=== PATIENT | female | born 1955 | race Caucasian/White ===

== ENCOUNTER 2018-11-29 10:33 | Inpatient (IN) | payer BC ==
[~2018-11-29] VITALS: Ht 167.6 cm; Wt 105.0 kg
[2018-11-29] MEDS ORDERED: FUROSEMIDE40 MG PO (11:00)
[2018-11-29] MEDS ORDERED: LEVOTHYROXINE100 MCG PO (11:01)
[2018-11-29] MEDS ORDERED: POTASSIUM CHLO20 ME1 PO (11:01)
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
--- NOTE | 2018-11-29 14:00 | NUR ---
63 YR OLD FEMALE PATIENT ADMITTED TO CCU FROM ED VIA STRETCHER WITH DX OF RESP FAILURE. PATIENT HAS FLAT AFFECT ON ADMIT. BIPAP AT 35% FIO2, I-15,E-7. IS PALE. DIFFICULT TO UNDESTAND WITH BIPAP ON. PATIENT HAD STESS ECHO AT [facility] YESTERDAY. ADMISSION PROCESS STARTED.
--- NOTE | 2018-11-29 14:15 | NUR ---
MEDICATIONS GIVEN BY MOUTH. PATIENT ASKING THAT BIPAP REMOVED. TALKED WITH PATIENT ABOUT THE NEED BIPAP. INDICATED UNDERSTANDING.
--- NOTE | 2018-11-29 16:00 | NUR ---
ASSESSMENT DONE. POSEY CATH PATIENT.
--- NOTE | 2018-11-29 16:00 | NUR ---
ASSESSSMENT DONE. IS W/O C/O. REMAINS ON BIPAP FIO2 35, 15/7.
--- NOTE | 2018-11-29 18:55 | NUR ---
DR. ROY AWARE OF U/O AND UPDATED ON PATIENT STATUS. REPORT TO NEXT SHIFT.
--- NOTE | 2018-11-29 19:32 | NUR ---
OFF BEDPAN, NO STOOL. TYLENOL 500 MG PO GIVEN.
--- NOTE | 2018-11-29 19:50 | NUR ---
SHIFT REPORT WAS RECEIVED FROM XAVI CHEN. PT CURRENTLY ON BIPAP. IV SL. RASH NOTED UNDER BREASTS, NIO FOR NYSTATIN POWDER INITIATED. POSEY IN PLACE, DRAINING FREELY. CALL LIGHT WITHIN REACH.
--- NOTE | 2018-11-29 20:16 | EKG ---
[facility] [address] [place], [place] [address] Signed Normal sinus rhythm Low voltage QRS Possible Anterolateral infarct , age undetermined Abnormal ECG No previous ECGs available Confirmed by VINCENZO ROY MD ([id number]) on 11/29/2018 8:16:51 PM Electronically Signed By: VINCENZO ROY MD 11/29/182015 PATIENT NAME: LEON BARCLAY MOON Electrocardiogram DATE OF : 53 PHYSICIAN: VINCENZO ROY MD REPORT #: [id number] REPORT IS CONFIDENTIAL AND NOT TO BE RELEASED WITHOUT AUTHORIZATION
--- NOTE | 2018-11-29 21:13 | NUR ---
PT DROWSY, BUT IS ORIENTED. DENIES PAIN. LUNGS DIM AND COARSE, BIPAP IN PLACE, 15/ FIO2:32%, RR:22. HR REGULAR. BOWEL TONES SLIGHTY HYPOACTIVE, DENIES NAUSEA. ANASARCA (3+ PITTING) NOTED FROM UPPER ABDOMEN DOWN TO FEET, DEPENDENT EDEMA ALSO PRESENT IN BILATERAL ARMS, RIGHT ARM SLIGHTLY MORE TIGHT FEELING THAN LEFT. POSEY IN PLACE, DRAINING FREELY, POSEY CARE PROVIDED. IV SL, PATENT, 1MG IV BUMEX ADMINISTERED, WILL START DRIP ONCE AVAILABLE FROM PHARMACY. PT'S SKIN ON ABDOMEN AND LEGS IS PINK, RASH NOTED UNDER BREASTS, NYSTATIN POWDER APPLIED. DROPLET PRECAUTIONS IN PLACE FOR +FLU. BIPAP REMOVED SO THAT PT COULD TAKE PO MEDS, PT DESATURATED TO 87% QUICKLY AND RETURNED BACK TO 96% ONCE BIPAP WAS REPLACED. CALL LIGHT WITHIN REACH. WILL CONTINUE TO MONITOR.
--- NOTE | 2018-11-29 21:51 | NUR ---
PHARMACIST DELIVERED BUMEX DRIP AT THIS TIME, INFUSION STARTED. PT APPEARS TO BE SLEEPING, NO APPARENT DISTRESS. BIPAP IN PLACE, RR:23, SPO2:95%, HR:86.
--- NOTE | 2018-11-30 00:21 | NUR ---
ASSESSMENT COMPLETED. PT GIVEN 500MG PO TYLENOL FOR AXILLARY TEMP OF 101.1, PT IRRITABLE THAT I WOKE HER UP. CONTINUES TO DENY PAIN AND NAUSEA. LUNGS REMAIN DIM/COARSE, BIPAP IN PLACE. HR REGULAR. BOWEL TONES ACTIVE. SKIN REMAINS REDDENED ON ABDOMEN AND LEGS. ANASARCA REMAINS PRESENT FROM ABDOMEN TO FEET. POSEY PATENT, LARGE UO WITH BUMEX DRIP IN PLACE. CALL LIGHT WITHIN REACH.
--- NOTE | 2018-11-30 02:12 | NUR ---
AWAKE, C/O BEING TOO WARM, BLANKETS OFF AND TEMP IN ROOM TURNED DOWN. OFF BIPAP AND ON OXYMASK FOR NOW. GIVEN SMALL AMT WATER PER PT REQUEST.
--- NOTE | 2018-11-30 02:51 | NUR ---
PT COMPLAINS THAT SHE IS NOT COMFORTABLE IN THE BED, STATES "I NEED TO GO WALK AROUND." EXPLAINED TO PT THAT SHE NEEDS TO REST AND THAT GOING FOR A WALK ISN'T AN OPTION AT THIS TIME. DID OFFER THAT WE COULD GET HER UP TO THE CHAIR FOR AWHILE. PT UP TO CHAIR WITH 2-PA PIVOT TRANSFER. PT ON 8L OXYMASK. RR:30, SPO2:98%, HR:85. PT WEARING NON-SKID SOCKS, CALL LIGHT IN LAP. PT ALSO COMPLAINING OF HER ARMS TINGLING WHICH IS CHRONIC FOR HER. PT REPEATS "I JUST WANT TO GO HOME."
--- NOTE | 2018-11-30 03:30 | NUR ---
PT REPORTS THAT SHE NEEDS TO HAVE BM. ATTEMPTED TO GET HER UP WITH 3-PA AND FWW, HOWEVER PT STATES "I'M STUCK" AND IS UNABLE TO STAND. UNDER-ARM SLING AND RODRIGUEZ USED TO ASSIST PT ALONG WITH 3-PA TO TRANSFER TO [facility]. PT HAD LARGE SOFT BM, SHELLEY-CARE PROVIDED. PT THEN TRANSFERED TO BED WITH SLING ASSIST. ASSESSMENT THEN COMPLETED, NO CHANGES FROM PREVIOUS ASSESSMENTS. TEMP: 99.1 ORALLY. PT STATES SHE WANTS TO TRY AND SLEEP SOME MORE. ATTEMPTED TO PLACE HER BACK ON BIPAP, BUT PT REFUSES AT THIS TIME. 8L VIA OXYMASK REMAINS IN PLACE, SLIGHT EXPIRATORY WHEEZE NOTED IN LEFT UPPER LOBE, OTHERWISE LUNG SOUNDS REMAIN COARSE AND DIM. BED SCALE ZEROED WHILE PT WAS IN CHAIR, WEIGHT THIS MORNIN.5 POUNDS. CALL LIGHT WITHIN REACH.
--- NOTE | 2018-11-30 05:59 | NUR ---
PT UPSET ABOUT HAVING TO HAVE LABS DRAWN THIS MORNING. EXPLAINED TO HER THE RATIONALE OF NEEDING TO MONITOR HER LAB VALUES AND PT RELUCTANTLY AGREES TO HAVE LABS DRAWN. KALPESH CONTINUES TO PUT OUT LARGE QUANTITIES OF URINE. IV PATENT, INFUSING WNL. CALL LIGHT WITHIN REACH.
--- NOTE | 2018-11-30 08:00 | NUR ---
PT ASLEEP IN BED AT THIS TIME WITH NO S/S OF DISCOMFORT OR PAIN. VSS AND SR ON CONTINUOUS TELE- WILL GIVE PT A LITTLE MORE TIME OF REST BEFORE WAKING FOR ASSESSMENT. CALL LIGHT WITHIN REACH. FALL PRECAUTIONS IN PLACE. WILL CONTINUE TO MONITOR.
--- NOTE | 2018-11-30 09:35 | NUR ---
ASSESSMENT COMPLETED AT THIS TIME. PT VERY FLAT, WITHDRAWN AND DEPRESSED. PT STATES MULTIPLE TIMES HOW BADLY SHE WANTS TO GO HOME, AND THAT SHE'LL "SNEAK OUT OF HERE" WHEN WE AREN'T LOOKING. PT ALSO STATES SHE "DOESN'T SEE THE POINT OF LIVING WHEN SICK ALL THE TIME," WELL HOW SHE THINKS NO ONE BUT HER CARES ABOUT HER SO SHE "MIGHT WELL GO HOME AND ." EMOTIONAL SUPPORT AND THERAPEAUTIC COMMUNICATION GIVEN. PT IS DROWSY WELL, BUT ORIENTED X4. ON 5 L/MIN O2 VIA OXYMASK. LUNGS ARE COURSE THROUGHOUT; MOIST NONPRODUCTIVE COUGH PRESENT. EDEMA/ANASARCA PRESENT AT ABDOMEN DOWN TO FEET. PT VERY UNMOTIVATED, INCLUDING JUST HOLDING THE PHONE WHEN HER BROTHER CALLED. PT DEFINITELY A MAX ASSIST. SHE REFUSES A BATH AT THIS TIME BUT I WILL ATTEMPT THIS AFTERNOON. POSEY CATH IN PLACE DRAINING LARGE AMOUNT OF URINE. BUMEX GTT IS RUNNING AT 0.5 MG/HR WITHOUT COMPLICATION. MEDS GIVEN. EDUCATION GIVEN ALTHOUGH PT UNINTERESTED. SHE DENIES ANY NEEDS TO BE MET AT THIS TIME. CALL LIGHT WITHIN REACH. FALL PRECAUTIONS IN PLACE. WILL CONTINUE TO MONITOR.
--- NOTE | 2018-11-30 10:45 | NUR ---
PER VERBAL ORDER BY DY. ROY, DECREASE BUMEX GTT AT THIS TIME TO 0.25 MG/ HR (5 ML/HR)- CHANGED RATE AT THIS TIME. WILL MONITOR HOURLY OUTPUT IN POSEY AND UPDATE DR. ROY WITHIN THE NEXT FEW HOURS. DR. ROY WAS ABLE TO HEAR HIMSELF PT'S DEPRESSIVE THOUGHTS. WILL WORK ON OBTAINING RECORDS FROM DR. WATERS. PT'S DIET IS ADVANCED AND LUNCH WILL BE ORDERED SHORTLY. PT ALSO GREATLY EDUCATED ON PO WATER INTAKE SHE IS FREQUENTLY REQUESTING WATER. SHE DOESN'T GRASP THE CONCEPT OF FLUID RESTRICTION- WILL CONTINUE TO EDUCATE AND REINFORCED. CALL LIGHT WITHIN REACH. WILL CONTINUE TO MONITOR.
--- NOTE | 2018-11-30 12:00 | NUR ---
PER [facility], ECHO REPORT INCOMPLETE AT THIS TIME BUT AWARE TO FAX TO US WHEN AVAILABLE. DR. WATERS OFFICE ALSO NOTIFIED AND WILL BE FAXING RECORDS TO US.
--- NOTE | 2018-11-30 12:45 | NUR ---
PASTORAL CARE NOTIFIED AT THIS TIME BASED OFF THIS RN'S ASSESSMENT THAT PT MIGHT BENEFIT FROM SEEING EAP COUNSELOR DUE TO DESPRESSION.
--- NOTE | 2018-11-30 14:00 | NUR ---
APRIL KURTZ CONTACTED ME AND EXPRESSED CONCERN ABOUT SYMPTOMS OF DEPRESSION PT WAS EXHIBITING. I CHECHED ON PT-SHE WAS SITTING UP IN BED. PT IS OBVIOUSLY UNHAPPY WITH BEING HERE. HER BROUGHT HER IN AND SHE FEELS THAT STAFF ARE CONSTANTLY BOTHERING HER. "DO THIS, TAKE THAT, DON'T DRINK ANY MORE" ARE JUST A FEW OF THE THINGS THAT PT IS ESPRESSING THAT SHE IS UNHAPPY ABOUT. SHE DID EXPRESS SEVERAL TIMES THAT SHE JUST WANT TO GO HOME AND . PT STATED THAT SHE IS TIRED OF BEING SICK-JUST WANTS IT TO END. PT DID LET ME PRAY WITH HER AND TOLD ME THAT IF SHE IS STILL HERE TOMORROW IT WOULD BE OK IF I COME BACK-BUT NOT UNTIL TOMORROW. WILL FOLLOW NEEDED
--- NOTE | 2018-11-30 14:15 | NUR ---
PT ASSISTED UP TO RECLINER- MAX ASSIST WITH RODRIGUEZ LIFT. PT NOW SITTING UP IN CHAIR AND HAS BEEN WEANED DOWN TO 5 L/MIN O2 VIA NC. PT STATES SHE'S COMFORTABLE AND DENIES ANY OTHER NEEDS. CALL LIGHT WITHIN REACH. WILL CONTINUE TO MONITOR.
--- NOTE | 2018-11-30 14:15 | NUR ---
DR. ROY UPDATED ON PT'S LAST FEW HOURLY URINE OUTPUTS- NO NEW UPDATES OR CHANGES TO BUMEX GTT- CONTINUES TO RUN AT 0.25 MG/HR (5ML/HR).
--- NOTE | 2018-11-30 15:00 | NUR ---
PT UP IN CHAIR RESTING AT THIS TIME. PT LESS AGITATED/IRRITABLE AT THIS TIME. POSEY CONTINUES TO DRAIN ADEQUATE URINE. BUMEX GTT STILL AT 0.25 MG/HR. DENIES ANY FURTHER NEEDS TO BE MET. CALL LIGHT WITHIN REACH. WILL CONTINUE TO MONITOR.
--- NOTE | 2018-11-30 16:20 | NUR ---
PT STILL UP IN CHAIR AT THIS TIME. PT VERY IRRITABLE AND AGITATED WITH ME BECAUSE I'M "TORTURING HER." EXTENSIVE ATTEMPTS AND CONVERSATIONS HAD WITH THE PT TODAY, AND REITERATED AT THIS TIME, IN REGARDS TO FLUID RESTRICTION AND HOW SHE CAN' BE DRINKING LARGE AMOUNTS OF WATER WHICH SHE WANTS TO DO. ICE CHIPS GIVEN AT THIS TIME. PT CONTINUES TO STATE THAT SHE "NEEDS 6-8 CUPS OF WATER A DAY." REPEATED THIS NUMEROUS TIMES IN CONVERSATION DESPITE MY EDUCATION. STATES SHE NEEDS CUPS OF WATER "TO FLUSH ALL THE STUFF OUT." NO CHANGES IN ASSESSMENT OTHERWISE- SHE'S DOWN TO 5 L/MIN O2 VIA NC WITH ADEQUATE O2 SATURATIONS.
--- NOTE | 2018-11-30 17:30 | NUR ---
PT REMAINS UP IN CHAIR. OFFERED TO ASSIST BACK TO BED BUT SHE STATES SHE'D LIKE TO REMAIN SITTING UP IN CHAIR. SHE REMAINS IRRITABLE AND FRUSTRATED, STATING YET AGAIN SHE WANTS TO LEAVE AND GO HOME. EDUCATION GIVEN AND THERAPEUTIC COMMUNICATION COMPLETED. SHE'S BEEN WEANED DOWN AND REMAINS AT 4 L/MIN O2 VIA NC WITH O2 SAT AT 97%.
--- NOTE | 2018-11-30 18:50 | NUR ---
DR. ROY UPDATED ON PHONE OF PT'S CONDITION- PHYSICAL CHART HOLDS RECORDS.
--- NOTE | 2018-11-30 18:51 | NUR ---
PT FELT THOUGH SHE NEEDED TO HAVE A BM- WITH MAX ASSIST AND RODRIGUEZ LIFT, PT ASSISTED UP ON COMMODE. NO BM, JUST LARGE AMOUNT OF FLATUS. ASSISTED BACK TO BED WITH RODRIGUEZ- STATES SHE'S COMFORTABLE; NO PAIN. CALL LIGHT WITHIN REACH. FALL PRECAUTIONS IN PLACE. WILL CONTINUE TO MONITOR.
--- NOTE | 2018-11-30 19:48 | NUR ---
IN TO CHECK ON PT, PT STARTS ASKING FOR WATER. ATTEMPTED TO EXPLAIN FLUID RESTRICTION TO PT, PT NOT UNDERSTANDING. BUMEX GTT INFUSING AT 0.25MG/HR.
--- NOTE | 2018-11-30 21:11 | NUR ---
CALL TO DR ROY TO UPDATE ON LAB RESULTS, WILL PUT IN ORDERS. BUMEX GTT ON HOLD FOR NOW PER VERBAL ORDER.
--- NOTE | 2018-11-30 21:45 | NUR ---
PT GIVEN HS MEDS, DENIES PAIN OR NEEDS THEN HELPED TO POSITION IN BED. PT WANTING TO SLEEP FOR THE NIGHT.
--- NOTE | 2018-11-30 22:28 | NUR ---
UPDATED DR. ROY OF PT'S [facility] LAB RESULT. HE STATES HE WILL PUT IN ORDERS.
--- NOTE | 2018-12-01 00:15 | NUR ---
PT ASSISTED WITH REPOSIIONING IN THE BED.
--- NOTE | 2018-12-01 00:30 | NUR ---
PT HAS BEEN VERY RESTLESS WITH MULTIPLE C/O INCLUDING, WANTING MORE WATER, ANNOYED WITH IV PUMP NOISES, UNCOMFOTABLE IN HOSPITAL BED. PT STATES "IM TIRED OF BEING SICK, I JUST WANT TO ". ATTEMPT TO REASSURE PT, ENCOURAGED PT TO RELAX AND TRY TO SLEEP.
--- NOTE | 2018-12-01 02:00 | NUR ---
PT ABLE TO FALL ASLEEP. RESP EVEN AND UNLABORED.
--- NOTE | 2018-12-01 02:33 | NUR ---
PT CALLS, WANTS TO GET UP TO BSC TO TRY TO HAVE BOWEL MOVEMENT. PT UP TO BSC WITH RODRIGUEZ LIFT, 2PANTWON ASSIST.
--- NOTE | 2018-12-01 03:30 | NUR ---
PT HAD LARGE BM, BACK TO BED WITH LIFT. [facility]LLEY CARE DONE. PT NOT WANTING TO PARTICIPATE IN HER OWN CARE, NEEDING ENCOURAGEMENT TO DO LITTLE THINGS LIKE MOVE ARMS, TRANSPORTATION DIRECTOR HER WATER OR PILLS.
--- NOTE | 2018-12-01 05:15 | NUR ---
PT CALLS TO GET UP TO BSC FOR BOWEL MOVEMENT. USES WALKER THIS TIME, STEADY ON FEET REQUIRING MINIMAL ASSISTANCE. CALL LIGHT IN HAND, WILL CALL WHEN SHE IS DONE. LAB IN TO DRAW.
--- NOTE | 2018-12-01 06:15 | NUR ---
PT USES WALKER TO GET BACK TO BED. HAD SM BM. PT AGREES TO GET HAIR WASHED AND BRUSHED. IS SEEMING TO BE IN A LITTLE BETTER MOOD THIS MORNING, ALTHOUGH SHE DOES OFTEN SAY "I JUST WANT TO GO HOME AND "IN A POUTY VOICE. TRIED PT ON ROOM AIR WHILE GETTING HAIR WASHED, SPO2 SLOWLY DOWN TO 82%, THEN O2 REPLACED 4L AND SATURATIONS QUICKLY UP TO 98%.
--- NOTE | 2018-12-01 07:43 | NUR ---
PT YELLING AT STAFF IN REGARDES TO BEING ON A FLUID RESTRUCTION PER DR ORDERS. PT TOLD STAFF TO TELL "THE DOCTOR TO GO TO HELL" TOLD PT THAT SHE DOES NOT NEED TO YELL AT STAFF AND THAT SHE CAN SHOW RESPECT TO US. THE STAFF IS JUST FOLLOWING DOCTORS ORDERS.
--- NOTE | 2018-12-01 08:16 | NUR ---
PT SISTER HAS CALLED AND WANTED INFORMATION, WENT AND ASKED PT AND SHE SAID "NO I WILL TALK WITH HER" PHONE CALL TRANSFERED. PT SISTER THEN CALLED BACK AND WANTED INFORMATION, YELLING AT STAFF TO PROVIDE INFORMATION. EXPLAINED AGAIN THAT I CAN NOT TELL HER ANYTHING AT THIS TIME, AND THAT SHE CAN CALL AND TALK WITH THE PT AND OR HER .
--- NOTE | 2018-12-01 09:13 | NUR ---
CHECKED IN WITH PATIENT AT 0800 FOR MORNING EVALUATION. PATIENT SEEMS DEPRESSED AND NOT INTERESTED IN PERSONAL CARE. PATIENT HAS MADE MULTIPLE COMPLAINTS ABOUT WATER RESTRICTION AND WOULD LIKE TO SPEAK WITH PROVIDER. PROVIDED PATIENT EDUCATION ABOUT CHF AND WHY FLUID RESTRICTION IS IMPORTANT. I WILL CONTINUE TO REINFORCE. PATIENT SEEMS TO HAVE DIFFICULTY WITH SMALL MOVEMENTS. DURING BREAKFAST PATIENT WAS NOT USING UTENSILS TO EAT AND WAS INSTEAD USING HER HANDS. PATIENT COMPLAINED ABOUT BACK PAIN DUE TO POSTION. PATIENT WILL BE GETTING AFTER SHE FINISHES HER BREAKFAST. MORNING MEDICATIONS WERE GIVEN SUCCESSFULLY. PATIENT NEEDED APPROXIMATELY 150ML OF WATER FOR MORNING MEDS. PATIENT HAS REPEATEDLY MENTIONED ABOUT THE IMPORTANCE OF 6-8 GLASSES OF WATER A DAY. ATTEMPTED TO REEDUCATE THE NEED FOR A FLUID RESTRICTION WITH CHF. PATIENT STATES SHE MAY HAVE A BOWEL MOVEMENT SOON. PATIENT HAD NO OTHER COMPLAINTS AT THIS TIME.
--- NOTE | 2018-12-01 10:35 | NUR ---
CHECKED IN WITH PATIENT AT 1015. PATIENT STILL HAS NEGATIVE OUTLOOK ON HER TREATMENT. PATIENT COMPLAINTS OF FREQUENT INTERRUPTIONS. PATIENT APPEARS TO BE COMFORTABLE IN HER CHAIR. PATIENT IS ABLE TO AMBULATE ON HER ON FROM BED TO COMMODE TO HER CHAIR. PATIENT HAS A NEGATIVE ATTITUDE WITH STAFF. WHEN BACKS ARE TURNED NOTICED PATIENT STICKING HER TOUNGE AT STAFF.
--- NOTE | 2018-12-01 10:52 | NUR ---
PT O2 DECREASED TO 2L'S VIA NC AT THIS TIME WITH A SPO2 97%. WILL TRY TO WEAN HER OFF TODAY. XRAY NOTIFED FOR CXR AND ECHO THAT WILL BE DONE TODAY AT SOME POINT.
--- NOTE | 2018-12-01 11:01 | NUR ---
CXR COMPLETED AT THIS TIME.
--- NOTE | 2018-12-01 11:20 | NUR ---
CHECKED ON PATIENT AT 1110. PATIENT ASLEEP IN CHAIR. OXYGEN SAT AT 2L WAS AT 97%. PATIENTS OXYGEN WAS TURNED OFF WHILE ASLEEP TO SEE IF PATIENT CAN TOLERATE ROOM AIR. AFTER 5 MINUTES PATIENTS 02 SAT IS MAINTAINING AT 88-90% ON ROOM AIR. PATIENT APPEARS TO BE IN NO DISCOMFORT AT THIS TIME.
--- NOTE | 2018-12-01 11:42 | NUR ---
ECHO RESULTS FROM [facility] PLACED IN PT HARD COPY CHART AT THIS TIME. DR ROY REVIEWED THEM.
--- NOTE | 2018-12-01 12:58 | NUR ---
PT REMAINS UP IN THE CHAIR, STATES "I WANT TO GO HOME! WHEN CAN I GO HOME" EXPLAINED THAT DR ROY TOLD HER THIS EARLY THIS AM "O' " PT C/O THE FOOD THIS IS NOT VEGAN FOOD. EXPLAINED THAT WE ARE NOT [facility], BUT WE CAN PICK AND SORT THROUGHT THE MENUE THAT SHE COULD EAT. THEN AGAIN ASKED "WHEN CAN I GO HOME" [employer] LEAD ASKED WHAT DID THE DOCTOR TELL YOU THIS AM? "WHEN I AM BETTER."
--- NOTE | 2018-12-01 13:15 | NUR ---
PT WANTED UP TO THE BS COMMOD, BUT REFUSED TO USE HER LEGS AND STAND. RODRIGUEZ LIFT INPLACE AND PT STOOD WITH OUT THE USE OF THE LIFT, BUT TWO PERSON STAND BY. AFTER THIS PT WILL GO BACK TO BED.
--- NOTE | 2018-12-01 14:17 | NUR ---
APRIL GARCIA INFORMED ME THAT PT IS AGAIN ON BSC, WILL CHECK BACK AGAIN
--- NOTE | 2018-12-01 14:59 | NUR ---
FAMILY HERE TO VISIT AT THIS TIME, BUT THEY ARE NOT WILLING TO GO INTO THE ROOM DUE TO THE FLU AND THEY HAVE SMALL CHILDREN AT HOME. ON THE PHONE AND TALKING WITH FAMILY THAT IS HERE. NO ONE HAS A REAL UNDERSTAND ON THE DISEASE PROCESS AND WHAT IT MEANS EVEN WITH TALKING AND EXPLAINING TO THEM.
--- NOTE | 2018-12-01 15:01 | NUR ---
CHECKED IN WITH PATIENT AFTER BOWEL MOVEMENT AT 1415, PERFORMED A BED BATH AT THIS TIME, APPLIED NYSTATIN AND BARRIER CREAM. PATIENT STATES SHE NO LONGER FEELS LIKE SHE IS "GOING TO ". SHAVED PATIENTS FACE, APPLIED NEW LEADS FOR MONITOR, SWITCHED TO WRIST CUFF FOR PATIENT COMFORT, DOCUMENTED I&OS. PATIENT HAD NO COMPLAINTS OF PAIN AT THIS TIME.
--- NOTE | 2018-12-01 17:30 | NUR ---
PT UP TO THE BEDSIDE AT THIS TO THE BEDSIDE COMMODE, BM NOTED AND THEN BACK TO BED SAT AT THE EDGE, THEN BACK IN BED. DINNER ORDERED.
--- NOTE | 2018-12-01 18:00 | NUR ---
PT REPOSITIONED UP IN BED FOR DINNER. TWO PERSON MAX ASSISTANCE NEEDED.
--- NOTE | 2018-12-01 18:22 | NUR ---
PT SISTER AND [id number] HERE AT THIS TIME. THEY WHERE PLACED IN ISOLATION PERCAUTIONS.
--- NOTE | 2018-12-01 18:26 | NUR ---
HAD STUDENT NURSE MIGUEL FROM [facility] TEACH PT HOW TO USE IS. THE PT HAD DIFFUCUTILY UNDERSTANDING DIRECTIONS AND WAS UNABLE TO USE THE IS CORRECTLY.
--- NOTE | 2018-12-01 18:56 | NUR ---
PT UP TO THE BEDSIDE COMMODE AND FAMILY STEPED OUT OF THE ROOM.
--- NOTE | 2018-12-01 19:14 | NUR ---
THIS GLOBAL SECURITY ARCHITECT AGREES WITH STUDENT NURSE CHARTING. MIGUEL FINE .
--- NOTE | 2018-12-01 19:33 | NUR ---
REPORT RECEIVED FROM RADHA CHEN. PT UP ON COMMODE TRYING TO HAVE BOWEL MOVEMENT. CALL LIGHT IN REACH.
--- NOTE | 2018-12-01 20:08 | NUR ---
PT BACK TO BED. ASSESSMENT DONE. LUNGS SOUND IMPROVED FROM LAST NIGHT. NOW MOSTLY DIM WITH JUST A FEW COARSE SOUNDS HEARD. PT IS ON ROOM AIR SPO2 94%. PT IS A BIT MORE CHEERFUL THIS EVENING THAN LAST NIGHT WELL. LAB IN TO DRAW.
--- NOTE | 2018-12-01 21:00 | NUR ---
PT REQUESTS TO GET BACK UP TO COMMODE. TOLD PT TO DRINK HER MIRALAX AND WAIT FOR A BIT INSTEAD OF SITTING AND STRAINING ON COMMODE FOR LONG PERIODS. PT NOT HAPPY WITH THIS PLAN, WANTS UP TO COMMODE NOW.
--- NOTE | 2018-12-01 21:28 | NUR ---
PT UP TO BSC AFTER MIRALAX DRANK. SITTING ON COMMODE WITH CALL LIGHT IN HAND. PUSHING AND STRAINING A LOT.
--- NOTE | 2018-12-02 | NUR ---
O2 SATURATIONS HAVE BEEN DROPPING, 85% ON ROOM AIR. 2L/O2 APPLIED AND SPO2 98%.
--- NOTE | 2018-12-02 00:15 | NUR ---
UP TO BSC TO TRY TO HAVE BM. CALL LIGHT IN HAND.
--- NOTE | 2018-12-02 01:00 | NUR ---
BACK TO BED. PT HAD SMALL AMOUNT OF LOOSE STOOL. ENCOURAGED TO TRY TO SLEEP FOR THE NIGHT.
--- NOTE | 2018-12-02 02:07 | NUR ---
UP TO BSC, WANTING TO TRY TO HAVE BM.
--- NOTE | 2018-12-02 02:43 | NUR ---
BACK TO BED, HAD MED SOFT BM. ENCOURAGED TO TRY TO SLEEP NOW.
--- NOTE | 2018-12-02 03:45 | NUR ---
PT CALLS, WANTS UP TO BSC TO HAVE BM. UP TO COMMODE, CALL LIGHT IN REACH.
--- NOTE | 2018-12-02 04:27 | NUR ---
BACK TO BED. PT IRRITABLE, COMPLAINING ABOUT BEING IN THE HOSPTIAL, O2 SENSOR, BP CUFF, FLUID RESTRICTION, IV TUBING. PT HAS NOT SLEPT YET TONIGHT. ENCOURAGED HER TO SLEEP.
--- NOTE | 2018-12-02 06:38 | NUR ---
PT STILL HAS NOT SLEPT, HAS BEEN CALLING APPROX EVERY 10 MINUTES FOR DIFFERENT THINGS. REFUSING SPO2 MONITOR. STATES SHE WANTS TO GO HOME AND WILL BE GOING HOME TODAY.
--- NOTE | 2018-12-02 07:30 | NUR ---
REPORT RECIEVED. IS IN BED, DENIES PAIN. BREAKFAST ORDERED.
--- NOTE | 2018-12-02 08:00 | NUR ---
ASSESSMENT DONE. OOB TO COMMODE WITH ASSIST. DENEIS SHORTNESS OF BREATH WITH EXERERTION. BUMEX CONTINUE TO INFUSE. POSEY CATH IS PATENT WITH CLEAR YELLOW URINE NOTED.
--- NOTE | 2018-12-02 09:01 | NUR ---
PATIENT UP FROM BSC TO CHAIR, 1PA FWW. PATIENT NOW EATING BREAKFAST. LINENS CHAGRENATO. CALL LIGHT IN REACH. NO FURTHER NEEDS AT THIS TIME.
--- NOTE | 2018-12-02 09:59 | NUR ---
PATIENT REQUESTED WATM BLANKET, BLANKET GIVEN. FAMILY IN ROOM. CALL LIGHT IN REACH. NO FURTHER NEEDS AT THIS TIME.
--- NOTE | 2018-12-02 10:30 | NUR ---
DR. ROY HERE TO SEE PATIENT, ORDES RECIEVED TO TRANSFER TO MEDICAL FLOOR. FAMILY IN ROOM. PATIENT CONTINUE TO SAY SHE WANTS TO GO HOME. IS VERY UNHAPPY WITH LIFE.
--- NOTE | 2018-12-02 10:50 | NUR ---
OT HERE TO WORK WITH MARITZA.
--- NOTE | 2018-12-02 11:30 | NUR ---
RECIEVED PT VANCE CCU VIA CHAIR. PT ON RA VSS. ORIENTED TO ROOM. MEDICATIONS ADMINISTERED. BUMEX DRIP INFUSING AT 5ML/HR. POSEY IN PLACE. BRI SENIOR, DROPLET PRECAUTIONS IN PLACE.
--- NOTE | 2018-12-02 11:30 | NUR ---
TO MED SURG VIA CHAIR.REPORT GIVEN EARLIER TO MEDICAL FLOOR. LUNCH ORDERED.
--- NOTE | 2018-12-02 13:28 | NUR ---
PATIENT IN CHAIR. CALL LIGHT IN REACH. NO FURTHER NEEDS AT THIS TIME.
--- NOTE | 2018-12-02 14:06 | NUR ---
SBA WITH FWW TT BSC. PT TOLERATED WELL. NO BM. BACK TO BED. PHYSICAL THERAPY IN TO ASSIST. [facility]
--- NOTE | 2018-12-02 17:00 | NUR ---
PT CAME FROM CCU. BUMEX DRIP INFUSING AT 5ML/HR. POSEY IN PLACE. NYSTATIN FOR UNDER BRESTS. FLUID RESTRICTION. PT DOES NOT WANT TO FOLLOW DIET RECOMMENDATIONS. ON RA.
--- NOTE | 2018-12-02 18:19 | NUR ---
PATIENT IN CHAIR. WARM BLANKETS GIVEN. CALL LIGHT IN REACH. NO FURTHER NEEDS AT THIS TIME.
--- NOTE | 2018-12-02 19:07 | NUR ---
RECEIVED REPORT FROM APRIL PAINTER. pt ON COMMODE CALL LIGHT WITHIN REACH.
--- NOTE | 2018-12-02 19:27 | NUR ---
ASSISTED PT SBA WITH FWW TO BS. CALL LIGHT IS CLOSE SHE WILL CALL WHEN SHE IS DONE.
--- NOTE | 2018-12-02 20:45 | NUR ---
ASSESSMENT AND MEDICATIONS DUE. ASSESSMENT DONE. pt SLOW TO RESPOND, CONTINUALLY STATES "I JUST WANT TO GO HOME". STATED "I DON'T KNOW IF IT IS WORTH LIVING IF I CAN'T DO ANYTHING I WANT TO DO". EDUCATED ON CURRENT ILLNESS AND IMPORTANCE OF SALT AND FLUID RESTRICTIONS. UP TO COMMODE, SMALL AMOUNT OF CHELY BLOOD FROM HEMORRHOIDS. WARM BLANKETS PROVIDED. VSS. UP TO COMMODE AGAIN AFTER MARCHING IN PLACE FOR 2 MINUTES. CALL LIGHT WITHIN REACH.
--- NOTE | 2018-12-02 21:48 | NUR ---
ASSISTED PT FROM THE COMMODE TO BED 1PA WITH FWW. PT COMPLAINED ABOUT DISCOMFORT OF POSEY CATHETER, AND THIS RN EXPLAINED THAT CECIL RN WILL CHECK IT WHEN SHE IS BACK IN BED BUT WAS UNABLE TO WHILE SHE WAS IN THE CHAIR. PT DRANK WATER AND REQUESTED MORE, WILL CHECK FLUID RESTRICTION BEFORE FILLING CUP AND PT BECAME ANGRY AND SAID SHE WILL "DRINK MUCH WATER SHE WANTS". TRIED DISCUSSING WHY IT IS IMPORTANT TO FOLLOW DR'S ORDERS TO GET BETTER BUT PT STATES SHE DOES NOT CARE AND WILL DO WHATEVER SHE WANTS. PT STATES SHE WILL GET HER OWN WATER OUT OF THE SINK. ADVISED PT WE NEED TO BE IN THE ROOM WHEN SHE IS UP AND PT AGAIN SAID SHE WILL DO WHAT SHE WANTS. BED ALARM IS ON AND CALL LIGHT IS CLOSE.
--- NOTE | 2018-12-02 22:00 | NUR ---
AFTER TALKING WITH CECIL CHEN SHE SAID PT CAN HAVE MORE WATER. BROUGHT PT 350 MLS OF WATER. CALL LIGHT IS CLOSE.
--- NOTE | 2018-12-02 23:49 | NUR ---
CALL LIGHT ON. pt REQUESTED WATER FROM BEDSIDE TABLE WHICH WAS WITHIN REACH. WATER GIVEN. NEW IV STARTED. pt STATED "STOP TORTURING ME" AND CRIED OUT DURING IV START. pt UP TO COMMODE. CALL LIGHT WITHIN REACH.
--- NOTE | 2018-12-03 00:21 | NUR ---
CALL LIGHT ON. MOVED pt FROM COMMODE TO BED. SETTLED IN BED WITH POSSESSIONS AND CALL LIGHT WITHIN REACH. NO FURTHER REQUESTS AT THIS TIME.
--- NOTE | 2018-12-03 01:47 | NUR ---
APRIL WALL ASSISTED pt TO COMMODE. CALL LIGHT WITHIN REACH.
--- NOTE | 2018-12-03 02:50 | NUR ---
pt CALLING. APPARENTLY pt KNOCKED CALL LIGHT ON FLOOR. MOVED CALL LIGHT WITHIN REACH. PROVIDED WATER. ASSISTED pt TO BED. NEW BAG OF BUMEX HUNG (SEE MAR). CALL LIGHT WITHIN REACH.
--- NOTE | 2018-12-03 03:39 | NUR ---
CALL LIGHT ON. ASSISTED pt TO COMMODE. CALL LIGHT WITHIN REACH.
--- NOTE | 2018-12-03 03:42 | NUR ---
CALL LIGHT ON. pt REQUESTED BLANKETS. WARM BLANKET PROVIDED. pt ON COMMODE. CALL LIGHT WITHIN REACH.
--- NOTE | 2018-12-03 04:19 | NUR ---
CALL LIGHT ON. ASSISTED pt TO BED FROM COMMODE. WARM BLANKETS PROVIDED. ORAL SWABS PROVIDED. CALL LIGHT WITHIN REACH.
--- NOTE | 2018-12-03 05:10 | NUR ---
pt UP TO COMMODE FREQUENTLY DURING SHIFT. NO BM. POSEY. BUMEX DRIP INFUSING. DAILY WT. NOT TOLERATING FLUID RESTRICTION OR SODIUM RESTRICTION. REQUESTED TO "GO HOME" MULTIPLE TIMES. UNRECEPTIVE TO EDUCATION. NYSTATIN FOR UNDER BREASTS. USES CALL LIGHT FREQUENTLY.
--- NOTE | 2018-12-03 06:32 | NUR ---
WITH THE HELP OF APRIL JACOB WE HELPED PT TO THE STANDING WEIGHT SCALE AND THEN TO THE BSC FROM THE BED WITH HER FWW. CALL LIGHT IN REACH. WIPED DOWN THE SCALE WITH RED WIPES AND PUT BACK IN TO THE STORAGE ROOM.
--- NOTE | 2018-12-03 06:41 | NUR ---
ASSISTED PT FROM THE BSC BACK TO BED WITH FWW. TABLE AND CALL LIGHT ARE WITHIN REACH AND FRESH WATER PROVIDED.
--- NOTE | 2018-12-03 07:40 | NUR ---
Pt A&OX3, respirations even and non labored. Personal supplies and call light within reach.
--- NOTE | 2018-12-03 07:45 | NUR ---
THIS RN IN ROOM TO ANSWER CALL LIGHT. PT HAD SMALL BM. PT SBA W/ FWW BACK TO BED. PT SLOW MOVING, BUT TOLERATED AMBULATION WELL. WARM BLANKET PROVIDED PER PT REQUEST, WATER AT BEDSIDE. CATHETER EMPTIED. NO FURTHER NEEDS, CALL LIGHT IN REACH.
--- NOTE | 2018-12-03 08:06 | NUR ---
patient in bed, patient has expressed her want to go home, she is currently in bed, nurse has made med pass
--- NOTE | 2018-12-03 08:58 | NUR ---
delvis went from commode to the chair, and breakfast has arrived, she is currently looking out to the window
--- NOTE | 2018-12-03 19:20 | NUR ---
SHIFT REPORT RECIEVED FROM DAYSHIFT APRIL LINARES. PT AWAKE IN BED, RR EVEN AND UNLABORED. PT REQUESTING HELP TO GET FROM CHAIR TO BSC FOR POSSIBLE BM. THIS RN AND APRIL LINARES IN ROOM TO HELP. PT ON BSC, INSTRUCTED TO USE CALL LIGHT WHEN SHE IS DONE. PT VERBALIZED UNDERSTANDING. CALL LIGHT IN REACH.
--- NOTE | 2018-12-03 21:26 | NUR ---
PT CALLED TO USE BSC. ASSISTED PT 1PA W FWW. SHE WOULD LIKE TO SIT AWHILE AND CALL LIGHT IS WITHIN REACH.
--- NOTE | 2018-12-03 21:50 | NUR ---
ASSESSMENT COMPLETE. SCHEDULED MEDS GIVEN (SEE EMAR). VSS. I&O'S RECORDED. PT A/OX3, DENIES PAIN. PT IN BED, RR EVEN AND UNLABORED. PT DENIES CHEST PAIN AND DYSPNEA. IS AT BEDSIDE, PT STATES, "YOU CAN THROW IT AWAY. I DON'T NEED IT". EDUCATION PROVIDED ON PURPOSE OF IS. IV BUMETANIDE INFUSING, SITE WNL. NO FURTHER NEEDS, CALL LIGHT IN REACH. PSOEY CARE PROVIDED, NYSTATIN GIVEN. CATHETER BAG EMPTIED. CALL LIGHT IN REACH.
--- NOTE | 2018-12-04 00:30 | NUR ---
PT RESTING IN BED, RR EVEN AND UNLABORED. EYES CLOSED. PT APPEARS COMFORTABLE, NO SIGNS OF RESPIRATORY DISTRESS. CALL LIGHT IN REACH.
--- NOTE | 2018-12-04 00:57 | NUR ---
ASSISTED PT TO THE BSC AND BACK TO BED. SHE DENIES FURTHER NEEDS AND CALL LIGHT IS WITHIN REACH.
--- NOTE | 2018-12-04 02:03 | NUR ---
this rn in room after hearing yelling being directed from the pt and directed towards wet mix operator. pt states, "I am not on a restriction. i can have as much as i want. Everybody else lets me have what i want". this rn reviewed md's order with pt. pt remained agitated and claims the restriction is a lie. This rn provided pt with education and states she can ask dr aleman about the restriction in morning rounds. no further needs, call light in reach.
--- NOTE | 2018-12-04 02:48 | NUR ---
HELPED PT TO THE BSC AND BACK TO BED WITH HER FWW. EMPTIED HER POSEY. GOT HER THREE WARM BLANKETS. BEDSIDE TABLE AND CALL LIGHT IN REACH. PT WAS VERY UPSET WITH ME FOR NOT GIVING HER MORE WATER ( SHE IS ON A FLUID RESTRICTION) SHE YELLED AT ME SAYING"I'M NOT ON A FLUID RESTRICTION, YOU ARE LYING!!" I TOLD HER I WOULD GET HER NURSE. I PROCEEDED TO TELL HER RN THUY.
--- NOTE | 2018-12-04 04:15 | NUR ---
THIS RN TO ANSWER CALL LIGHT. PT BSA WITH FWW BACK TO BED. SMEAR BM NOTED. POSEY CATHETER EMPTIED. PT RESPOSTIONED SELF IN BED, PILLOW PLACED UNDER LOWER EXTREMITIES FOR ELEVATION. IV BUMETANIDE INFUSING, SITE WNL. PT DENIES PAIN, IS AT BEDSIDE. CALL LIGHT IN REACH. A/OX3.
--- NOTE | 2018-12-04 05:01 | NUR ---
PT REQUESTING TO USE BSC. PT SBA WITH FWW TO BCS. PT INSTRUCTED TO USE CALL LIGHT WHEN FINISHED, PT VERBALIZED UNDERSTANDING. CALL LIGHT IN REACH.
--- NOTE | 2018-12-04 05:14 | NUR ---
PT UP TO BSC FREQUENTLY THROUGHOUT SHIFT, SMEAR LIKE BM X2 THIS SHIFT. CATHETER IN PLACE VOIDING QS YELLOW URINE. REDDNESS NOTED TO SHELLEY AREA AND UNDER BREASTS. VSS, PT ON RA. DENIED DYSPNEA THIS SHIFT. COMPLETED SCHEDULED TAMIFLU DOSES. A/X3, DENIED PAIN ALL SHIFT. 1PA W/FWW, SLOW MOVING. 1800 FLUID RESTRICTION, PT WAS VERY UPSET AND DENIED FLUID RESTRICTION WAS IN PLACE. INTERMITTENT AGITATION AND IS VERY PARTICULAR W/ ASPECTS OF CARE. DAILY WT. USES CALL LIGHT FREQUENTLY.
--- NOTE | 2018-12-04 07:15 | NUR ---
CONTINUOUS BUMEX INFUSING @ 5ML/HR.
--- NOTE | 2018-12-04 07:33 | NUR ---
Pt heading back to bed from commode with clinical nurse assist. Pt denies pain. Pt is on ra, resp even and non labored. Personal supplies and call light within reach. No needs at this time.
--- NOTE | 2018-12-04 10:39 | NUR ---
SUPPOSITORY PLACED TO HELP PREMOTE A BM. PT HAS BEEN ATTEMPTING TO HAVE A BM SINCE YESTERDAY, FREQUENT BR TRIPS WITH ONLY SMALL STOOL SMEARS. PLACED SUPPOSITORY WITH PADMINI PARKER IN ROOM. INSTRUCTED PT TO HOLD SUPPOSITORY IN RECTUM LONG POSSIBLE TO PREMOTE ITS EFFECTS. PT AGREES TO PLAN OF CARE. CALL LIGHT LEFT WITHIN REACH. NO NEEDS AT THIS MOMENT.
--- NOTE | 2018-12-04 10:48 | NUR ---
PATIENT USED CALL LIGHT, SHE EXPRESSED THAT SHE NO LONGER WANTED THE SUPPOSITORY THE NURSE HAD PLACED ABOUT 5 MINUTES PRIOR TO HER CALLING. THE PATIENT SAID "WE WERE TORTURING HER" AND "ONLY WANTED TO HURT HER" THIS SURVEY RESEARCH ANALYST EXPRESSED TO THE PATIENT WE ARE JUST TRYING TO HELP HER AND IF ANYTHING MAKES HER UNCOMFORTABLE WE DO NOT HAVE TO DO IT, THOUGH WE ARE JUST TRYING TO HELP HER. SHE THEN SAID "SHE WOULD GIVE IT A TRY" AND IS CURRENTLY SITTING ON THE COMMODE. NURSE IS NOTIFIED
--- NOTE | 2018-12-04 16:31 | NUR ---
PT UP AN DDOWN FROM COMMODE FREQUENTLY HAVING SMALL BM'S. PT DENIES PAIN AT THIS TIME. PT REMAINS ON RA, RESP EVEN AND NON LABORED. PERSONAL SUPPLIES AND CALL LIGHT WIHTIN REACH.
--- NOTE | 2018-12-04 17:47 | NUR ---
PATIENT CALLED ON THE CALL LIGHT AND SAID SHE NEEDED ASSISTANCE TO THE COMMODE, THIS CONSUMER LENDING MANAGER WENT INTO THE ROOM, THE PATIENT THEN SAID "OH HURRY UP I NEED TO GO MOVE FASTER" THIS CONSUMER LENDING MANAGER DID HER BEST TO GET THE COMMODE SET UP JUST THE WAY SHE LIKES IT IN A TIMELY MANOR, SHE WANTED THE COMMODE LINED WITH TOWELS SO IT DID NOT AGGITATE HER BOTTOM WHICH IS UNDERSTANDABLE, SHE GOT OVER TO THE COMMODE AND AT THIS TIME SHE SAID THAT THIS WAS "TAKING ADVANTAGE OF HER" AND "YOU WERE PROBABLY A PAMPERED JAVID" THIS CONSUMER LENDING MANAGER ENSURED THE PATIENT THAT WAS NOT THE CASE, AND THAT THIS CONSUMER LENDING MANAGER DID NOT HAVE TO LISTEN TO THE PATIENTS COMMENTS ANY LONGER, THAT THIS CONSUMER LENDING MANAGER WAS DOING THE BEST POSSIBLE TO MAKE HER COMFORTABLE.
--- NOTE | 2018-12-04 17:53 | NUR ---
SPOKE TO PT REGARDING BEING COURTEOUS TO THE STAFF. PADMINI PARKER REPORTED PT HAD CALLED HER NAMES AND WOULD NOT LET HER TAKE PT'S VITALS. WENT IN TO CHECK ON PT. SHE THEN REPEATED WHAT SHE HAD SAID TO ELENA. I CALMLY EXPLAINED TO HER THAT WE ARE DOING ARE BEST TO ACCOMADATE HER MANY DEMANDS AND WILL DO SO HAPPILY BUT SHE DID NOT NEED TO DISRESPECT THE STAFF. SHE THEN STATED THAT I COULD TAKE HER VITALS BUT THAT I WAS ALSO "MEAN AND A SPOILED JAVID" I THANKED HER FOR ALLOWING ME TO TAKE HER VITALS AND CHANGED THE SUBJECT TO HOW SHE WAS FEELING NOW. ASKED IF HAD ANY OTHER CONCERNS AND TOLD TO CALL WHEN SHE WAS DONE ON THE COMMODE. CALL LIGHT IN REACH.
--- NOTE | 2018-12-04 19:05 | NUR ---
SHIFT REPORT RECEIVED FROM PAPO LINARES. PT SITTING ON BSC, DENIES NEEDS AT THIS TIME. CALL LIGHT IN REACH.
--- NOTE | 2018-12-04 19:30 | NUR ---
HELPED PT TO THE BSC FROM HER CHAIR. CALL LIGHT IN REACH. PT SAYS SHE WILL CALL WHEN SHE IS READY TO GET OF THE BSC.
--- NOTE | 2018-12-04 21:30 | NUR ---
ASSESSMENT COMPLETE. SCHEDULED MEDS GIVEN (SEE EMAR). PT A/OX4, DENIES PAIN. VS COLLECTED FROM JANUARY PAINTER HAND STABLE. PT REPORTS NEED TO USE BSC, PT UP SBA W/ FWW TO BSC. PT RESTING ON BSC AND INSTRUCTED TO USE CALL LIGHT WHEN DONE, PT VERBALIZED UNDERSTANDING, CALL LIGHT IN REACH.
--- NOTE | 2018-12-04 21:52 | NUR ---
VITALS AND I&OS DONE AND CHARTED. HELPED PT TO THE BED FROM THE BSC. WARM BLANKETS GIVEN. BEDSIDE TABLE AND CALL LIGHT IN REACH. PT NEEDS NOTHING MORE AT THIS TIME.
--- NOTE | 2018-12-04 23:30 | NUR ---
SHELLEY CARE DONE.
--- NOTE | 2018-12-05 00:59 | NUR ---
PER PT REQUEST I HELPED HER TO THE BSC FROM HER BED WITH THE FWW. COVERED HER UP WITH BLANKETS. CALL LIGHT IN REACH. SHE WILL CALL WHEN SHE IS READY TO GO BACK TO BED.
--- NOTE | 2018-12-05 02:15 | NUR ---
ASSESSMENT COMPLETE. NO NEW CONCERNS. PT REPORTS 3/10 PAIN, PRN TYLENOL GIVEN. IV DUIRETIC HUNG (SEE EMAR), IV SITE WNL. PT HAD SMAL BM, 700 UO FROM POSEY CATHETER. PT NOW RESTING IN BED, DENIES ADDITIONAL NEEDS, CALL LIGHT IN REACH.
--- NOTE | 2018-12-05 03:26 | NUR ---
HELPED PT TO THE BSC. COVERED HER UP , PUT STOOL UNDER HER FEET AND CALL LIGHT IN REACH. PT WILL CALL WHEN SHE IS READY TO GO BACK TO BED. SHE NEEDS NOTHING MORE AT THIS TIME.
--- NOTE | 2018-12-05 05:03 | NUR ---
HELPED PT TO THE BSC WITH HER FWW. CALL LIGHT AND BEDSIDE TABLE IN REACH. SHE WILL CALL WHEN SHE IS RREADY TO GO BACK TO BED.
--- NOTE | 2018-12-05 05:43 | NUR ---
PT HAD OKAY NIGHT, SLEPT ON AND OFF. REQUESTED TO USE BSC FREQUENTLY DURING SHIFT. MULTIPLE BM'S. POSEY CATHETER IN PLACE, VOIDING QS. PT A/OX3, USES CALL LIGHT FREQUENTLY. SBA W/ FWW W/ AMBULATION. VSS, PT ON RA. PT/OT ORDERS. PT HAS FLAT AFFECT, REINFORCE EDUCATION PRN.
--- NOTE | 2018-12-05 05:47 | NUR ---
VITALS AND I&OS DONE AND CHARTED. HELPED PT GET TO THE BED FROM THE BSC. WEIGHED ON STANDING SCALE. BEDSIDE TABLE AND CALL LIGHT IN REACH.
--- NOTE | 2018-12-05 07:10 | NUR ---
REPORT RECEIVED FROM APRIL DALEY. PT UP IN BED AND IRRITABLE WITH CARES. PT REPORTS "IT SEEMS SMOKEY IN HERE." O2 SATURATION CHECKED - 87%. PT ENCORUAGED TO USE INCENTIVE SPIROMETER. PT REFUESES, EDUCATION DONE. PT ATTEMPTS USE BUT IS UNABLE TO USE CORRECTLY AFTER MULTIPLE DEMONSTRATIONS AND EDUCATION. PT PLACED ON 2L O2 WITH O2 SATURATION RAISING TO 90%. BED RAILS UP. CALL LIGHT WITHIN REACH.
--- NOTE | 2018-12-05 08:23 | NUR ---
MORNING ASSESSMENT AND MEDICATIONS DUE. PT REPORTS 2/10 PAIN IN SHOULDER THAT RESOLVES WITH REPOSITIONING. PT CONTINUES TO BE IRRATABLE WITH CARES. PT UP TO CHAIR. 2O O2 REMAINS IN PLACE, RR = 32 BPM. INCENTIVE SPIROMETER EDUCATION DONE, PT UNABLE TO DEMONSTRATE CORRECT USE EVEN WITH MULTIPLE ATTEMPTS AT EDUCATION. ASSESSMENT DONE. LUNG SOUNDS CLEAR. DEEP BREATHING ENCOUARGED. MD NOTIFIED OF RR. MEDICATION GIVEN. PT ASSISTED UP TO COMODE AND BACK TO CHAIR, FWW SBA. PT EATING BREAFAST. WARM BLANKETS PROVIDED. NO ADDITIONAL REQUESTS OR COMPLAINTS. CALL LIGHT WITHIN REACH.
--- NOTE | 2018-12-05 09:08 | NUR ---
PATIENT UP TO CHAIR, 1PA FWW. WARM BLANKETS GIVEN. CALL LIGHT IN REACH. NO FURTHER NEEDS AT THIS TIME.
--- NOTE | 2018-12-05 09:52 | NUR ---
MEDICATION DUE. THIS RN TO ROOM TO CHECK ON PT. PT UP TO CHAIR. PT DENIES PAIN AND NAUSEA. MEDICATION GIVEN. EDUCATION DONE R/T MEDICATION AND RESPIRATORY CARE. EDUCATION DONE WITH INCENTIVE SPIROMETER, PT CONTINUES TO BE UNABLE TO USE IS CORRECTLY. PT REMINAS ON 2L O2, NOW AT 95% O2 SATURATION. NO ADDITIONAL REQUESTS OR COMPLAINTS AT THIS TIME. CALL LIGHT WITHIN REACH.
--- NOTE | 2018-12-05 10:46 | NUR ---
Pt helped to the recliner from the commode. Call frederick within reach.
--- NOTE | 2018-12-05 11:05 | NUR ---
PATIENT IN CHAIR RESTING WITH EYES CLOSED. CALL LIGHT IN REACH. NO FURTHER NEEDS AT THIS TIME.
--- NOTE | 2018-12-05 11:10 | NUR ---
THIS RN TO ROOM WITH MD FOR ROUNDS. PT IRRITABLE WITH CARES. PHYSICAL THERAPY ARRIVED AND WORKING WITH PT. NO ADDITIONAL REQUESTS OR COMPLAINTS.
--- NOTE | 2018-12-05 11:39 | NUR ---
PATIENT AMBULATED WITH PT. PATIENT NOW IN CHAIR. WARM BLANKETS GIVEN. CALL LIGHT IN REACH. NO FURTHER NEEDS AT THIS TIME.
--- NOTE | 2018-12-05 12:49 | NUR ---
NOON ASSESSMENT AND MEDICATIONS DUE. THIS RN TO BEDSIDE. PT ON LEFT SIDE AFTER ENEMA ADMINISTRATION. PT COMPLAINS OF 10/10 PAIN IN RIGHT SHOULDER BUT REFUSES ALL INTERVENTIONS. PT EVENTUALLY AGREES TO TURN TO BACK (AFTER 15 MINUTES OF ENEMAL DWELL TIME). PT REPOSITIONED. ASSESSMENT DONE. MEDICATIONS GIVEN. POSEY NOTED TO NO LONGER BE SEQURED, NEW SEQUREMENT STICKER APPLIED. LUNG SOUNDS CLEAR, PT REMAINS AT 90-92% ON ROOM AIR. PT ASSISTED UP TO COMODE. LARGE BM NOTED. PT REMAINS ON COMODE AT THIS TIME. CALL LIGHT WITHIN REACH.
--- NOTE | 2018-12-05 15:10 | NUR ---
MANAGER OF HOSPITAL REPORTS PT IS REFUSING TO GET UP TO SHOWER. THIS RN TO BEDSIDE. PT CONCERNED ABOUT COLD, DRYING HAIR, AND "WHY DO YOU PEOPLE EVEN ASK ME TO SHOWER. EDUCATION DONE. PT AGREES TO SHOWER. PT TRANSFERED TO SHOWER CHAIR, 1PA, FWW. PIV COVERED. POSEY DRAINING TO GRAVITY. MANAGER OF HOSPITAL WITH PT TO ASSIST WITH SHOWER.
--- NOTE | 2018-12-05 16:09 | NUR ---
PATIENT UP TO SHOWER CHAIR AND BACK TO CHAIR, 1PA FWW. LINENS CHANGED. NEW GOWN PROVIDED. WARM BALNKETS GIVEN. CALL LIGHT IN REACH. NO FURTHER NEEDS AT THIS TIME. FRESH WATER GIVEN.
--- NOTE | 2018-12-05 16:19 | NUR ---
PT STATES "YOU GUYS HAVE NO BUSINESS WITH WHAT I DO WHEN I GO HOME, IT DOESN'T MATTER TO ANY OF YOU--YOU JUST WANT TO POKE ME AND TAKE MY MONEY" I ASSURED HER THAT IS NOT THE CASE. SHE STATES SHE WANTS TO RETURN HOME UPON DC. BUT AFTER I EXPLAINED THAT SHE NEEDED TO GET STRONGER, SHE COULD GO TO A REHAB AND GET STRONGER BEFORE GOING HOME AND TAKING CARE OF HERSELF--"KAL EVEN THOUGH MY IS THERE I AM TAKING CARE OF MYSELF."
--- NOTE | 2018-12-05 16:43 | NUR ---
ASSESSEMENT AND MEDICATION DUE. THIS RN TO BEDSIDE. PT ON COMODE. PT FREQUENTLY ATTEMPTING TO HAVE BOWEL MOVEMENTS. PT UP TO COMODE EVERY 30-60 MINUTES WITH OCCATIONAL BOWEL MOVEMENTS. NO BM THIS TIME. PT ASSISTED BACK TO CHAIR. PT IRRITABLE WITH CARES. ASSESSMENT DONE. COURSE LUNG SOUNDS IN RIGHT UPPER AND LOWER LOBES. PT DENIES PAIN AND NAUSEA. EDUCATION DONE WITH INCENTIVE SPIROMETER, PT CONTINUES TO BE UNABLE TO USE IS CORRECTLY. MEDICATION GIVEN. DAVIDE HEART FAILURE EDUCATOR, TO BDSIDE, TALKING WITH PATIENT. CALL LIGHT WITHIN REACH.
--- NOTE | 2018-12-05 16:59 | NUR ---
PTS SISTER, KELLIE, CALLED AND UPDATED REGARDING PT CONDITION AND PLAN OF CARE PER PT REQUEST. KELLIE VERBALIZES UNDERSTANDING AND STATES HER QUESTIONS HAVE BEEN ANSWERED.
--- NOTE | 2018-12-05 17:06 | NUR ---
Certified Heart Failure Nurse Notes: Diagnosis: HFpEF, Influenza A PCP: Dr Cardoza Date of echocardiogram-data not found 524-Admit BNP: Social support system: Lives with spouse Weight monitoring: States she thinks scale present in home. Introduced to daily weight/ identify when to notify PCP Symptom management: Specific written recommendations to follow-up for ongoing management, and to address changes in weight or symptoms discussed. Patient utilized Zones with encouragement and coaching. Transportation mode: Diet: Vegetarian diet followed at home. Denies use of salt in cooking or use of processed foods. She does the cooking and shopping at home. Usual physical activity: not discussed Medication routine: denies missed medications. States she may have 7 day pill box at home, not currenlty in use. Advanced directive: Not discussed at this initial visit Recommendations prior to discharge: Document ambulation oxygen saturations prior to discharge Absence of orthostatic hypotension. Discharge weight less than admit weight. Discharge BNP less than admit (as per [facility] Heart Failure DC Bundle) Barriers to self-care include:Anxiety, fear, knowledge deficit. Patient appears hesitant to discuss diagnosis or current self care. Follow-up plans: Nursing staff to continue to reinforce heart failure home self care. Will attempt to see if patient is more willing to talk tomorrow. Teaching materials given : [facility] Heart Failure bundle folder Daily weight and symptom monitoring log, Myrna magnet, [facility] contact information Will need to read [facility] Living well with HF booklet prior to DC
--- NOTE | 2018-12-05 17:07 | NUR ---
FAXED CHART NOTES INCLUDING FACE SHEET, H AND P, PROG NOTES, PT AND OT EVAL AND NOTES TO [facility] AFTER TALKING WITH KB FROM [facility]. RECIEVED FAX CONFIRMATION.
--- NOTE | 2018-12-05 17:45 | NUR ---
PT CALL LIGHT ON. THIS RN TO ROOM. PT STATES SHE "NEEDS TO POOP" BUT IS UNABLE TO DO SO. 1PA, FWW FROM COMODE TO BED, POSEY CATHETER CHECKED AND FOUND TO BE OUT OF PTS BLADDER. POSEY REMOVED PER PROTCOL, 30ML OF HEMATURIA NOTED. NOTIFIED, ORDERS TO REPLACE POSEY CATHETER AND REPORT VOLUME. POSEY CATHETER PLACED PER PROTOCOL, 2RN ASIST. 30ML VOLUME, BLADDER SCAN WITH 0ML RESIDUAL. VALUES REPORTED TO MD. WHILE PSOEY CATHTER WAS OUT PT HAD NO COMPLAINTS OF NEEDING TO HAVE A BM. AFTER NEW POSEY WAS PLACED PT BEGINS REPORTING SHE NEEDS TO HAVE A BM AGAIN. TYLENOL GIVEN. NOTIIFED. NEW ORDERS PLACED. PT ASSISTED UP TO CHAIR FOR DINNER. MEDICATION GIVEN (SEE MAR). PT CONTINUES TO STATE SHE NEEDS TO "POOP" BUT IS UNABLE TO DO SO. CALL LIGTH WITHIN REACH.
--- NOTE | 2018-12-05 18:03 | NUR ---
PT HERE FOR RESPIRATLY BENITOE. 1PA, FWW, UP WITH PHYSICAL THERAPY, TO CHAIR, SHOWER, AND BEDSIDE COMODE TODAY. POSEY CATHETER CHANGED TODAY AFTER POSEY FOUND TO BE OUT OF BLADDER. 1800 ML FLUID RESTRICTION. ENEMA GIVEN PER PT REQUEST TODAY, MULTIPLE BMS. DAILY WEIGHT. TYELNOL GIVEN X1 FOR PAIN AND URGE CONTROL. CHF EDUCATION DONE, PT RATES HERSELF IN "YELLOW" ZONE. X-RAY OF ABDOMEN PERFORMED. PT USES CALL LIGHT FREQUENTLY.
--- NOTE | 2018-12-05 18:14 | NUR ---
PATIENT UP TO CHAIR FROM BED, 1PA FWW. PATIENT EATING DINNER. CALL LIGHT IN REACH. NO FURTHER NEEDS AT THIS TIME. PATIENT NOT WILLING TO DO THINGS SHE IS CAPABLE OF FOR HERSELF LIKE MOVE A PILLOW. INSTEAD SHE IS ASKING NURSING DIRECTOR TO DO THESE THINGS FOR HER.
--- NOTE | 2018-12-05 19:00 | NUR ---
RECEIVED REPORT FROM DAY HIFT RN. PATIENT IS RESTINGIN BED. ASSISTED YOUTH LEADER WITH X-RAY OF PATIENTS ABD. PATIENT STRUGGLED WITH ACTIVITY. PATIENT IS RESTING IN BED NOW. PATIENT DENIES ANY NEEDS. CALL LIGHT IN REACH.
--- NOTE | 2018-12-05 19:25 | NUR ---
RECEIVED PHONE CALL FROM . RECEIVED NEW ORDERS. VERIFIED ORDERS USING READBACK METHOD. TO PUT ORDERS INTO COMPUTER.
--- NOTE | 2018-12-05 19:45 | NUR ---
PATIENT SL BY CHARGE. APRIL.
--- NOTE | 2018-12-05 21:35 | NUR ---
PATIENT ASSESMENT COMPLETED. EVENING MEDICATIONS GIVEN PER ORDER. [facility] PATIENT HAS DRANK HALF OF 1ST BOTTLE. PATIENT ASSISTED TO THE RESTROOM AFTER AMBULTING A FEW LAPS AROUND THE ROOM A SBA W/FWW. PATIENT WAS UNABLE TO HAVE BM. PATIENT IS NOW BACK IN BED RESTING. SNA IN ROOM TO COMPLETE VITALS. PATIENT ASSISTED TO SIT ON THE EDGE OF THE BED AND DRINK HER GATORADE. NO FURTHER NEEDS NOTED. CALL LIGHT IN REACH.
--- NOTE | 2018-12-05 23:24 | NUR ---
ACCOMPANIED PATIENT AMBULATE FROM ROOM TO STAFF REST ROOM AND BACK TO PATIENT'S ROOM. PATIENT IS SITTING ON THE TOILET. INSTRUCTED TO USE THE CALL LIGHT WHEN DONE AND READY TO GO BACK TO BED. APRIL RUSSELL NOTIFIED.
--- NOTE | 2018-12-05 23:51 | NUR ---
PATIENT USED THE CALL LIGHT IN THE BATHROOM. STILL NO BOWEL MOVEMENT. PATIENT IS BACK IN BED NOW.
--- NOTE | 2018-12-05 23:51 | NUR ---
PATIENT AMBUALTED IN HALLWAY WITH SLUNK SKINNER. PATIENT ATTEMPTED TO USE THE RESTROOM. PATIENT WAS UNABLE TO HAVE BM. PATIENT IS BACK IN BED RESTING. PATIENT DENIES ANY NEEDS. CALL LIGHT IN REACH.
--- NOTE | 2018-12-06 01:13 | NUR ---
ANSWERED BATHROOM CALL LIGHT. PATIENT HAD A BOWEL MOVEMENT. ASKED ME TO WIPE/CLEANED HER. THIS TREE SCOUT CALLED THE PRIMARY RN IF SHE NEEDS TO SEE THE BM. RN CAME AND SAW IT. PATIENT DECIDED TO SIT BACK ON THE TOILET. INSTRUCTED TO USE THE CALL LIGHT WHEN DONE AND READY TO GO BACK TO BED.
--- NOTE | 2018-12-06 01:32 | NUR ---
PATIENT USED BATHROOM CALL LIGHT. PATIENT HAD SECOND BM. THIS SYSTEMS COORDINATOR HELPED PATIENT CLEANED/WIPE. PATIENT WASHED HANDS. PATIENT IS BACK IN BED. CALL LIGHT AND SIDE TABLE WITHIN REACH.
--- NOTE | 2018-12-06 01:51 | NUR ---
PATIENT IS RESTING IN BED. PATIENT HAS BEEN UP AND HAD X2 LARGE LOOSE BMS. PATIENT STATED "I AM STARTING TO FEEL BETTER". PATIENT DENIES ANY FURTHER NEEDS. CALL LIGHT IN REACH.
--- NOTE | 2018-12-06 02:59 | NUR ---
PATIENT IS RESTING IN BED WITH EYES CLOSED, RR 18. CALL LIGHT IN REACH.
--- NOTE | 2018-12-06 03:31 | NUR ---
ANSWERED BATHROOM LIGHT. HELPED PATIENT WIPE/CLEANED, THEN PATIENT DECIDED TO SIT BACK ON TO THE TOILET STATED "FEELS LIKE I NEED TO GO MORE". PATIENT INSTRUCTED TO USE THE CALL LIGHT WHEN DONE READY TO GO BACK TO BED.
--- NOTE | 2018-12-06 03:44 | NUR ---
PATIENT ASSISTED TO THE RESTROOM A SBA W/FWW. PATIENT HAS LARGE, LOOSE BM. PATIENT IS BACK IN BED RESTING. NO NEEDS NOTED. CALL LIGHT IN REACH.
--- NOTE | 2018-12-06 03:48 | NUR ---
ANSWERE BATHROOM CALL LIGHT. HELPED PATIENT WIPE/CLEANED. PATIENT IS BACK IN BED. WARM BLANKET PROVIDED.
--- NOTE | 2018-12-06 04:36 | NUR ---
CALL LIGHT ON. ASSISTED pt FROM TOILET TO BED. WARM BLANKET PROVIDED. CALL LIGHT AND POSSESSIONS WITHIN REACH.
--- NOTE | 2018-12-06 04:56 | NUR ---
PATIENT RESTED ON AND OFF THROUGHOUT THE SHIFT. PATIENT IS ON A CARDICA DIET. PATIENT RECEIVED X2 BOTTLES OF MIRALAX. PATIENT HAD SEVERAL BMS THROUGHTOUT THE NIGHT. PATIENT IS ON A 1800 FR. PATIENT IS A SBA W/FWW TO THE RESTROOM. PATIENT ALSO AMBULATED ABOUT 50 FT IN THE HALLWAY WITH X2 REST BREAKS. PT/OT. PATIENT HAS POSEY IN PLACE. URINE OUPUT IS QS, AND PINK IN COLOR. PATIENT HAS BEEN COMPLIANT WITH CARE. PATIENT IS AAOX3. PATIENT IS SL AND IV FLUSHES WELL. PATIENT USES CALL LIGHT.
--- NOTE | 2018-12-06 06:35 | NUR ---
PATIENT IS RESTING IN BED. PATIENT GIVEN MORNING MEDICATION PER ORDER. PATIENT DENIES ANY NEEDS. CALL LIGHT IS WITHIN REACH.
--- NOTE | 2018-12-06 07:21 | NUR ---
REPORT RECEIVE FROM APRIL RUSSELL. PT REQUESTS TO GET UP TO WALK AROUND THE ROOM AND USE THE BATHROOM. PT UP, SBA, WALKS AROUND ROOM AND THEN TO RESTROOM. PT CONTINUES TO HAVE BMS. POSEY DRAINING PINK URINE. PT DENIES PAIN AND AND NAUSEA. PT UP TO CHAIR. CALL LIGHT WITHIN REACH.
--- NOTE | 2018-12-06 09:20 | NUR ---
POSEY CATH REMOVED PER ORDER AT THIS TIME. 9ML STERILE WATER REMOVED FROM BULB AND CATH REMOVED WNL, PT TOLERATED WELL.
--- NOTE | 2018-12-06 09:34 | NUR ---
PT CALL LIGHT ON. PT REQUESTS ASSISTANCE UP TO RESTROOM. SBA, FWW UP TO RESTROOM. BLANKETS PROVIDED. PT DEMONSTRATES USE OF CALL LIGHT. NO ADDITIONAL REQUESTS OR COMPLAINTS AT THIS TIME.
--- NOTE | 2018-12-06 09:45 | NUR ---
PT CALL LIGHT ON. PT REQUESTS ASSISTANCE BACK TO CHAIR. SHELLEY CARE DONE. BARRIER CREAM APPLIED. SBA, FWW BACK TO CHAIR. WARM BLANKETS PROVIDED. NO ADDITIONAL REQUESTS OR COMPLAINTS AT THIS TIME. CALL LIGHT WITHIN REACH.
--- NOTE | 2018-12-06 10:10 | NUR ---
PT CALL LIGHT ON. PT REQUESTS ASSISTANCE UP TO RESTROOM. SBA, FWW UP TO RESTROOM. PT DEMONSTRATES USE OF CALL LIGHT. NO ADDITIONAL REQUESTS OR COMPLAINTS AT THIS TIME.
--- NOTE | 2018-12-06 10:58 | NUR ---
RECIEVED PHONE CALL FROM PT JUAN RAMON, WANTING TO KNOW HOW HIS IS DOING AND WHEN SHE WILL BE READY TO COME HOME. TOLD HIM SHE AND I HAD DISCUSSED HER GOING TO REHAB AND SHE WAS INTERESTED IN THAT AND WANTS TO GO TO [facility]. WE ARE JUST WAITING ON AUTHORIZATION FROM HER INSURANCE COMPANY FOR HER TO GO TO [facility].
--- NOTE | 2018-12-06 12:31 | NUR ---
NOON ASSESSMENT DUE. THIS RN TO BEDSIDE. PT UP TO CHAIR. PT REPORTS NAUSEA, DENIES PAIN. ASSESSMENT DONE. CRACKELS IN LLL NOTED. O2 SATURATION 94% ON ROOM AIR. MEDICATION GIVEN (SEE MAR). EDUCATION DONE WITH INCENTIVE SPIROMETER, PT UNABLE TO DEMONSTRATE USE. PT ASSISTED UP TO BATHROOM, NO VOID OR BM AT THIS TIME. PT BACK TO CHAIR. PT REQUESTS LUNCH. PT ASSISTED WITH ORDERING HER OWN LUNCH OVER THE PHONE. WARM BLANKETS PROVIDED. CALL LIGHT WITHIN REACH.
--- NOTE | 2018-12-06 13:00 | NUR ---
PT CALL LIGHT ON. PT REQUESTS TO "GET UP AND WALK AROUND." PT UP TO WALK TO CCU DOOR AND BACK TO ROOM WITH 2 RESTS BOTH WAYS. PT UP TO TOILET. PT DEMONSTRATES USE OF CALL LIGHT WHICH IS WITHIN REACH.
--- NOTE | 2018-12-06 13:15 | NUR ---
PT CALL LIGHT ON. PT FINISHED WITH USING RESTROOM. UNMEASURED VOID VOID MISSED HAT. SBA, FWW BACK TO CHAIR. PT DENIES NAUSEA. PT EATING LUNCH. CALL LIGHT WITHIN REACH. NO ADDITIONAL REQUESTS OR COMPLAINTS AT THIS TIME.
--- NOTE | 2018-12-06 15:30 | NUR ---
THIS RN TO ROOM TO CHECK ON PT. PT CALL LIGHT ON. PT GETTING UP TO RESTROOM WITH STACKING MACHINE OPERATOR. PT DEMONSTARTES USE OF CALL LIGHT. CAN WORKING WITH PT. NO REQUESTS OR COMPLAINTS.
--- NOTE | 2018-12-06 17:20 | NUR ---
AFTERNOON ASSESSMENT DUE. THIS RN TO BEDSIDE PT WALKING IN HALLWAY WITH EDITORIAL MANAGER. PT WALKED TO CCU AND BACK TO ROOM WITH 5 REST BREAKS. PT BACK TO CHAIR. ASSESSMENT DONE. PT DENIES PAIN AND NAUSEA. PT REPORTS "PASSING GAS MADE ME FEEL BETTER." I.S. USE ATTEMPTED, PT CONTINUES TO HAVE DIFFICULTY BUT REACHES 100 WITH ASSISTANCE. PT UP TO RESTROOM. DINNER ORDERED FOR PT. NO ADDTIONAL REQUESTS OR COMPLAINTS AT THIS TIME. PT DEMONSTRATES USE OF CALL LIGHT.
--- NOTE | 2018-12-06 18:26 | NUR ---
PT ADMITTED FOR CHF AND RESPIRTORY FAILURE. SBA, FWW. TOLERATING CARDIAC/VEGEITARIAN DIET, 1800ML FLUID RESTRICTION. BOWEL PREP DONE FOR CONSTIPATION LAST SHIFT, CONTINUED, BUT SLOWING, LOOSE BOWEL MOVEMENTS THIS SHIFT. PT ENCORUAGED TO PARTICIPATE IN CARES. [place] COLE TODAY, PT VOIDING QUANTITY SUFFICIENT. DAILY WEIGHT. PT UP TO WALK IN [place] X2 THIS SHIFT. COUGH, DEEP BREATHING, AND I.S. USE ENCORUAGED. PT USES CALL LIGHT FREQUENTLY.
--- NOTE | 2018-12-06 19:00 | NUR ---
RECEIVED REPORT FROM DAY SHIFT RN. PATIENT IS RESTING IN RECELINER. PATIENT DENIES ANY NEEDS. CALL LIGHT IN REACH.
--- NOTE | 2018-12-06 19:00 | NUR ---
CHARGE ROUNDING DONE. PRIMARY RN IN ROOM FOR REPORT.
--- NOTE | 2018-12-06 19:55 | NUR ---
ASSISTED PATIENT FROM BATHROOM TO CHAIR. WIPED/CLEANED PER PATIENT'S REQUEST. ASKED IF THERE IS ANYTHING ELSE I CAN DO, PATIENT STATED "IF YOU CAN TEACH ME HOW TO USE THAT STUPID THING". PATIENT MEAN THE "IS". THIS COMPUTER TRAINER DEMONSTRATED ON HOW TO USE IT. THE PATIENT INSISTED ON HOW SHE USE IT BY INVERTING THE INSTRUMENT AND BLOWS IT. THIS COMPUTER TRAINER EXPLAINED THE RIGHT WAY TO USE.
--- NOTE | 2018-12-06 20:25 | NUR ---
PATIENT ASSESMENT COMPLETED. PATIENTS VITALS TAKEN AND RECORDED. PATIENT ASSITED TO THE RESTROOM A SBA W/FWW. PATIENT WAS ABLE TO VOID. PATIENT ALSO HAD LOOSE BM MIXED WITH HER URINE. NYSTATIN APPLIED TO SHELLEY AREA. BARRIER CREAM APPLIED TO COCYX AREA. PATIENT IS BACK IN BED RESTING. PATIENT DENIES ANY NEEDS AT THIS TIME. CALL LIGHT IN REACH.
--- NOTE | 2018-12-06 20:25 | NUR ---
SBA TO THE BATHROOM USING WALKER. PATIENT WANTED TO BE WRAPPED UP WITH WARM BLANKET AROUND HER SHOULDERS, LEGS AND FEET WHILE IN THE TOILET.
--- NOTE | 2018-12-06 20:27 | NUR ---
PATIENT IS BACK SITTING ON THE CHAIR. APRIL RUSSELL WAS WITH PATIENT. V/S AND I&O DONE AND CHARTED.
--- NOTE | 2018-12-06 21:45 | NUR ---
PT CALLED, WAS ON TOLIET, AND NEEDED TO GO BACK TO BED. COMPAINING ABOUT THE "MEDICATION TO MAKE HER POOP", SAID IT ISN'T WORKING? THIS NURSE SAID DEPENDS ON WHAT YOUR EXPECTATION IS OF A MEDICATION THAT CAUSES BOWEL MOVEMENTS. ONCE TO BED, PT REQUESTED AN ATTENDS, SHE WANTED TO "SLEEP" BETTER TONIGHT AND NOT GET UP TO THE BATHROOM. EDUCATED PT ON WHY IT WAS IMPORTANT TO GET UP AND USE BATHROOM, AND THAT MOST LIKELY, IF SHE WAS INCONT. BY CHOICE, SHE WOULD STILL NOT GET SLEEP STAFF WOULD HAVE TO GO IN, WAKE HER AN CHANGE HER. THIS TRIP TO THE BATHROOM, SHE HAD A DRIP OF BM. DID HAVE HER CLEAN HER GROIN AREA WHICH IS REDDENED, AND APPLIED POWDER, AND PLACED CLOTH TO PREVENT SKIN TO SKIN CONTACT. PT PRIMARY RN NOTIFIED OF PT'S COMMENTS.
--- NOTE | 2018-12-06 23:44 | NUR ---
PATIENT IS RESTING IN BED WITH EYES CLOSED, RR 18. CALL LIGHT IN REACH.
--- NOTE | 2018-12-07 00:42 | NUR ---
SBA TO THE BATHROOM USING WALKER. WIPED/CLEANED AND APPLIED BARRIER CLEAM ON PATIENT'S PERIANAL AREA. PATIENT IS BACK IN BED. CALL LIGHT AND SIDE TABLE IN REACH.
--- NOTE | 2018-12-07 01:22 | NUR ---
PATIENT GIVEN MORE WATER PER REQUEST. PATIENT EDUCATED ON FR AND REMAINING ORAL INTAKE. PATIENT VERBALIZES UNDERSTANDING. NO FURTHER NEEDS. CALL LIGHT IN REACH.
--- NOTE | 2018-12-07 02:59 | NUR ---
PATIENT CALLED TO USE THE BATHROOM. SBA WITH WALKER.
--- NOTE | 2018-12-07 03:11 | NUR ---
ROUNDED ON PATIENT TO ANSWER PATIENT CALL LIGHT. PATIENT SBA WITH FWW BACK TO BED. POSSESSIONS AT BEDSIDE. WARM BLANKET PROVIDED PER PATIENT REQUEST. CALL LIGHT WITHIN REACH. NO MORE NEEDS AT THIS TIME.
--- NOTE | 2018-12-07 03:44 | NUR ---
PATIENT IS RESTING IN BED. PATIENT AWOKE WHEN ROOM WAS ENTERED. PATIENT DENIES ANY NEEDS. CALL LIGHT IN REACH.
--- NOTE | 2018-12-07 04:18 | NUR ---
PATIENT RESTED ON AND OFF THROUGHOUT THE SHIFT. PATIENT IS ON A CRADIAT DIET, TOLERATING WELL, AND NO COMPLAINTS OF NAUSEA. PATIENT IS ON A 1800 FR. PATIENT IS WORKING WITH PT/OT. PATIENT IS ON RA. PATIENT IS A SBA W/FWW. PATIENT IS VOIDING QS. PATIENT HAS DENIED PAIN. NYSTATIN APPLIED TO GROIN AREA AND UNDER BREASTS. PATIENT IS AAOX3. PATIENT HAS BEEN COMPLIANT W/CARE. PATIENT USE CALL LIGHT APPROPRIATELY.
--- NOTE | 2018-12-07 06:16 | NUR ---
PATIENT ASSISTED BACK TO THE BED BY VAULT ATTENDANT. PATIENT IS A SBA W/FWW. PATIENT DENIES ANY PAIN. PATIENTS MORNING MEDICATIONS GIVEN PER ORDER. PATIENT DENIES ANY NEEDS. CALL LIGHT IN REACH.
--- NOTE | 2018-12-07 07:55 | NUR ---
REPORT RECEIVED FROM JUNIOR AUTOMATION ENGINEER RN. PT AWAKE IN BED. DENIES PAIN. SBA WITH FWW TO BATHROOM, VOIDED 100ML. UP TO CHAIR FOR BREAKFAST. CALL LIGHT IN REACH.
--- NOTE | 2018-12-07 08:40 | NUR ---
TALKED WITH THE PT, STATED THEY HAD RECIEVED THE AUTHORIZATION FOR HER TO GO TO [facility] FOR REHAB, EXPLAINED THAT AFTER THE ORDERS WERE WRITTEN AND [facility] ACCEPTED THEM THEY WOULD BE SENDING SOMEONE TO PICK HER UP.
--- NOTE | 2018-12-07 09:50 | NUR ---
ASSESSEMNT DONE. PT UP IN CHAIR. [facility]. MEDICAITONS ADMINSITERED. DNEIES NEEDS.
[2018-12-07] MEDS ORDERED: POTASSIUM CHLO20 ME1 PO (10:44)
[2018-12-07] MEDS ORDERED: MAG-OXIDE400 MG PO (10:45)
[2018-12-07] MEDS ORDERED: TORSEMIDE20 MG PO (10:45)
--- NOTE | 2018-12-07 12:10 | NUR ---
RECIEVED MESSAGE FROM [facility] THAT THEY HAVE ACCEPTED THE ORDERS AND RAFA THE STUDIO OPERATIONS MANAGER WILL BE HERE APPROX 30 MINUTES FROM NOW.
--- NOTE | 2018-12-07 12:14 | NUR ---
CALLED AND LEFT A MESSAGE FOR PT JUAN RAMON AT [phone], HE DID NOT ANSWER HIS PHONE AT THIS TIME.
--- NOTE | 2018-12-07 12:40 | NUR ---
REPORT CALLED TO FRANCISCO CHEN AT [facility].
== END 2018-12-07 12:25 | DRG 291 ==
LOC: ED 10:33 → CCU 13:26 → MS 12-02 11:38
PROVIDERS: ADMIT Internal Medicine
PROC: 5A09357 Assistance with Respiratory Ventilation, Less than 24 Consecutive Hours, Continuous Positive Airway Pressure (ICD-10-PCS; principal; 2018-11-29)
DX: I50.33 Acute on chronic diastolic (congestive) heart failure (principal); J96.01 Acute respiratory failure with hypoxia; J96.02 Acute respiratory failure with hypercapnia; E03.9 Hypothyroidism, unspecified; J10.1 Influenza due to other identified influenza virus with other respiratory manifestations; F32.9 Major depressive disorder, single episode, unspecified; J45.20 Mild intermittent asthma, uncomplicated; K59.00 Constipation, unspecified; Z79.899 Other long term (current) drug therapy; Z91.19 Patient's noncompliance with other medical treatment and regimen
CPT/HCPCS: 36415; 51702; 71045; 74018; 80048; 80053; 80069; 81001; 82803; 83605; 83690; 83735; 83880; 84439; 84443; 84484; 85025; 87040; 87502; 93005; 93010; 94640; 94660; 97110; 97116; 97162; 97165; 97530; 99285-25; J1120; J1650; J2405; J3475; J7060